=== PATIENT | female | born 2000 | race Caucasian/White ===

== ENCOUNTER 2025-02-04 08:31 | Outpatient (CLI) | payer BC, SELFPAY ==
--- NOTE | 2025-02-04 08:45 | CA_ITS ---
APPROVED REPORT EXAM: Comprehensive 2D, Doppler, and color-flow Echocardiogram Orthopaedic Doctor: Pau Neal CRT Ht: 5 ft 7 in Wt: 145lbs BSA: 1.76 BP: 97/58 mmHg Indications: balloon valvuloplasty @ 4 days old, BAV, AR, 2D Dimensions LA Volume 57.90 mL LA Volume Index 32.00 mL/m2 (M/F) 16-34 M-Mode Dimensions RVDd 2.04 cm (0.9-2.6) LA Diam 3.64 cm (1.9-4.0) LVDd 4.53 cm (3.5-5.7) LVDs 2.96 cm (3.5-5.7) IVSd 1.57 cm (0.6-1.1) PWd 0.82 cm (0.6-1.1) EF (Teich) 63.90% FS 34.70% EDV (Teich) 93.90 mL TAPSE 2.66 (<1.7) ESV (Teich) 33.90 mL LV Diastology E Decel Time 157 (160-240 msec) E/A Ratio 1.42 MED A' 7.20 cm/s LAT A' 3.90 cm/s Aortic Valve LI Index 1.36 cm2/m2 AoV Peak Jamey. 247.0 (50-130 cm/s) AI PHT 650.00 ms AO Peak GR. 24.30 mmHg AO Mean GR. 14.90 (<5 mmHg) AO VTI 60.3 (18-25 cm) LI (VTI) 2.47 (2.5-4.5 cm2) Mitral Valve MV E Max Jamey. 119.0 (40-130 cm/s) MV A Velocity 83.0 (40-130 cm/s) E/A Ratio 1.42 MV PHT 46.0 ms Pulmonary Valve PV Peak Velocity 143.0 (50-150 cm/s) Tricuspid Valve TR P. Velocity 281.00 cm/s RAP Estimate 10.00 mmHg RVSP 41.70 mmHg Left Ventricle The left ventricle is normal size. Left ventricular systolic function is normal. The left ventricular ejection fraction is within the normal range. There is normal left ventricular wall thickness. There is normal LV segmental wall motion. The left ventricular diastolic function is normal. LVEF is 55%. Right Ventricle The right ventricle is normal size. The right ventricular systolic function is normal. Atria The left atrium size is normal. The right atrium size is normal. There is no color Doppler evidence of interatrial shunt. Aortic Valve History of bicuspid aortic valve s/p balloon valvuloplasty during childhood. The aortic valve is mildly thickened. Mild aortic stenosis is present. LI by continuity equation is 2.0 cm2. Peak velocity 2.3 m/s. Mean AV gradient 14 mmHg. Max AV gradient is 24 mmHg. Moderate aortic regurgitation is present. Mitral Valve The mitral valve is normal in structure. No evidence of mitral valve stenosis. Trace mitral regurgitation is present. Tricuspid Valve The tricuspid valve leaflets are thin and pliable. Mild tricuspid regurgitation. RVSP is 30-35 mmHg. Pulmonic Valve The pulmonary valve is grossly normal in structure. Mild pulmonic valve regurgitation is present. Great Vessels The aortic root is normal in size. IVC is normal in size and collapses >50% with inspiration. Pericardium There is no pericardial effusion. Other Information Study Quality: Fair Conclusion Normal biventricular size and systolic function. History of bicuspid aortic valve s/p balloon valvuloplasty during childhood. Moderate AI. Mild (LI by continuity equation is 2.0 cm2. Peak velocity 2.3 m/s. Mean AV gradient 14 mmHg. Max AV gradient is 24 mmHg). Mild TR, mild ME. RVSP 30-35 mmHg. Electronically signed by : Connie Braun MD 02/08/2025 19:15:08
--- OUTSIDE RECORDS SUMMARY | 2025-02-04 08:50 | XMS_ITS | Encounter Summary ---
Author Organization [facility] Address [address] [place] [address] Care Team Providers Care Denitrator Name Role Phone Fide Cochran RN Unavailable Unavailable Nicholas Koroma MD Unavailable Peewee Freeman MD Unavailable [phone] Olivia Holloway STATISTICAL CLERK ADVERTISING Unavailable [phone] Constance Parks RN Unavailable Unavailable Mayra Patel Primary Care Provider [phone] Reason for Visit * Reason Comments Med Refill Encounter Details Date Type Department Care Team (Late st Contact Info) Description 01/16/2023 Refill [facility] [address] [facility] [place] [address] Nicholas Koroma MD [address] [place] [address] Social History Tobacco Use Types Packs/Day Years Used Date Smoking Tobacco: Former Cigarettes 0.5 0.7 0 09/25/2019 - 05/27/2020 Smokeless Tobacco: Former Comments:vaped Alcohol Use Standard Drinks/Week Comments Not Currently 0 (1 standard drink = 0.6 oz pure alcohol) currently / Not drinking PHQ-2 Answer Date Recorded Patient Health Questionnaire-2 Score 0 12/06/2022 PHQ-2A Answer Date Recorded Patient Health Questionnaire-2 Score 0 12/06/2022 Education Answer Date Recorded What is the highest level of school you have completed or the highest degree you have received? 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 LVM documented in this encounter Plan of Treatment Not on file documented as of this encounter Visit Diagnoses Not on filedocumented in this encounter Additional Health Concerns Assessment Noted Time A fall risk assessment has been complete d for the patient 01/09/2023 1:58 PM EDT A Body Mass Index follow-up plan has been documented for the patient 10/25/2022 1:13 PM EDT documented as of this encounter Care Teams Denitrator Relationship Specialty Start Date End Date Mayra Patel PA [facility] PCP - General 12/06/22 Fide Cochran RN [facility] Registered Nurse 10/25/22 Nicholas Koroma MD [address] [place] [address] Consulting Physician Pediatric Cardiology 10/25/22 Peewee Freeman MD [address] [place] [address] Consulting Physician Cardiology 10/25/22 Olivia Holloway APRN [address] [place] [address] Nurse Practitioner Internal Medicine 10/25/22 Constance Parks RN [facility] Registered Nurse Cardiology 10/25/22 documented as of this encounter
--- OUTSIDE RECORDS SUMMARY | 2025-02-04 08:50 | XMS_ITS | Encounter Summary ---
Author Organization [facility] Address [address] [place] [address] Care Team Providers Care Full Stack Python Developer Name Role Phone Mayra Patel PA-C Primary Care Provider [phone] Encounter Details Date Type Department Care Team (Latest Contact Info) Description 12/09/2024 Travel Social History Tobacco Use Types Packs/Day Years Used Date Smoking Tobacco: Never Smokeless Tobacco: Never Alcohol Use Standard Drinks/Week Comments Not Currently 0 (1 standard drink = 0.6 oz pur e alcohol) OCC, 1 DRINK WEEKLY PHQ-2 Answer Date Recorded Patient Health Questionnaire-9 Score 5 12/09/2024 Comments No Sex and Gender Information Value Date Recorded Sex Assigned at Not on file Legal Sex Female 11:35 AM EDT Gender Identity Not on file Sexual Orientation Not on file documented as of this encounter Functional Status documented as of this encounter Plan of Treatment Not on file documented as of this encounter Visit Diagnoses Not on filedocumented in this encounter Additional Health Concerns Assessment Noted Time PHQ-2 Depression Total Score: 3 02/03/20 24 1:45 PM EDT documented as of this encounter Care Teams Full Stack Python Developer Relationship Specialty Start Date End Date Mayra Patel PA-C [address] [facility] [address] [place] [address] PCP - General Family Medicine 10/20/21 documented as of this encounter
--- OUTSIDE RECORDS SUMMARY | 2025-02-04 08:50 | XMS_ITS | Clinical Summary ---
Author Organization [facility] Address [address] [place] [address] Care Team Providers Care Assembly Line Worker Name Role Phone Fide Cochran RN Unavailable Unavailable Nicholas Koroma MD Unavailable Peewee Freeman MD Unavailable [phone] Olivia Holloway PAINTINGS CONSERVATOR Unavailable [phone] Constance Parks RN Unavailable Unavailable Mayra Patel Primary Care Provider [phone] Allergies No known active allergies Medications sertraline (Zoloft) 50 MG tablet Take 1 tablet (50 mg) by mouth 1 (one) time each day. Active Active Problems Problem Noted Date Diagnosed Date Aortic stenosis due to bicuspid aortic valve 01/2023 Aortic regurgitation due to bicuspid aortic valv e 02/02/2023 Encounter for planned induction of labor 023 Bicuspid aortic valve 12/06/2022 Fatigue 12/06/2022 Shortness of breath 12/06/2022 Edema 12/06/2022 Nonrheumatic aortic valve stenosis 10/25/2022 Congenital heart disease in 10/25/2022 Subaortic stenosis 10/25/2022 Moderate aortic regurgitation 10/25/2022 Social History Tobacco Use Types Packs/Day Years Used Date Smoking Tobacco: Former Cigarettes 0.5 0.7 0 09/25/2019 - 05/27/2020 Smokeless Tobacco: Former Tobacco Cessation:Counseling Given: Not Answered Comments:vaped Alcohol Use Standard Drinks/Week Comments Not Currently 0 (1 standard drink = 0.6 oz pure alcohol) currently / Not drinking PHQ-2 Answer Date Recorded Patient Health Questionnaire-2 Score 0 12/06/2022 [place] Depression Scale Answer Date Recorded [place] Depression Scale Total 3 01/24/2023 The thought of harming myself has occurred to me . 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 Not on file Not on file Not on file Last Filed Vital Signs Vital Sign Reading Time Taken Comments Blood Pressure 113/72 01/31/2023 1:25 PM EDT Pulse 66 01/31/2023 1:25 PM EDT Temperature 36.4 C (97.5 F) 01/24/2023 9:00 AM EDT Respiratory Rate 16 01/24/2023 9:00 AM EDT Oxygen Saturation 99% 01/31/2023 1:25 PM EDT Inhaled Oxygen Concentration - - Weight 72.1 kg (159 lb) 03/20/2023 4:38 PM EDT Height 170.2 cm (5' 7 ) 03/20/2023 4:38 PM EDT Body Mass Index 24.9 03/20/2023 4:38 PM EDT Plan of Treatment Health Maintenance Due Date Last Done Comments Dental Oral Exam 2000 Dental Prophylaxis 2000 Dental X-Ray: Bitewings 2000 Dental X-Ray: Full Mouth 2000 [facility]-HIV Screening 2000 [facility]-/Child/Adol SDOH Screenings 2000 [facility]- SDOH Screenings 2018 [facility]-Adult SDOH Screenings 2018 [facility]-DTaP,Tdap,and Td Vaccines (7 - Td or Tdap) 09/23/2021 09/24/2011, 12/18/2004, 06/25/2002, Additional history exists [facility]-Pap Smear 2021 [facility]-Depression Screening 01/25/2024 01/24/2023, 11/24 [id number] Vaccine ( season) 2025 [facility]-Influenza Vaccine (#1) 01/25/202507/25, 07/03/2016, 03/31/2012 [facility]-Zoster Vaccines (1 of 2) 2050 09/24/2011, 12/22/2001 [facility]-Hepatitis B Vaccines Completed 002, 02/13/2001, 2000 [facility]-HIB Vaccines Completed 06/25/2002, , 04/14/2001, Additional history exists [facility]-IPV Vaccines Completed 12/18/2004, , 04/14/2001, Additional history exists [facility]-Varicella Vaccines Completed 09/24/2011, 2001 HPV Vaccines Completed 03/31/2012, 06/2011, 09/24/2011 [facility]-Hepatitis A Vaccines Completed 03/31/2012, 08/27 [facility]-Hepatitis C Screening Completed 06/05/2022 [facility]-Pneumococcal Vaccine: Pediatrics (0 to 5 Years) and At-Risk Patients (6 to 49 Years) Aged Out No longer eligible based on patient's age to complete this topic [facility]-Rotavirus Vaccines Aged Out No lo nger eligible based on patient's age to complete this topic Insurance [facility] Member Subscriber Plan / Payer (Ef fective 2020-Present) Name:CHALO SEARS Relation to Subscriber:Child Name:RENUISRAEL Date of :1967 Address: [address] [place] [address] Payer ID:[id number] (NAIC) Type:Not on file Address: [facility] [address] [phone] Advance Directives * Full Code (Latest Code Status on File) Date Activated Date Inactivated Comments 01/04/2023 9:11 AM 01/07/2023 4:52 PM Question Answer Comments Patient has decision-making capacity? Yes Care Teams Assembly Line Worker Relationship Specialty Start Date End Date Mayra Patel PA [facility] PCP - General 12/06/22 Fide Cochran, RN [facility] Registered Nurse 10/25/22 Nicholas Koroma MD [address] [place] [address] Consulting Physician Pediatric Cardiology 10/25/22 Peewee Freeman MD [address] [place] [address] Consulting Physician Cardiology 10/25/22 Olivia Holloway APRN [address] [place] [address] Nurse Practitioner Internal Medicine 10/25/22 Constance Parks, RN [facility] Registered Nurse Cardiology 10/25/22
--- OUTSIDE RECORDS SUMMARY | 2025-02-04 08:50 | XMS_ITS | Patient Health Record ---
Author Organization [facility] Address [address] [facility] [facility] [facility] [place] [address] Care Team Providers Care Service Correspondent Name Role Phone Gisella Vega Unavailable [phone] GonsalesAmbar Unavailable [phone] Reason For Referral No Information Medications Medication SIG (Take, Route, Frequency, Duration) Notes Start Date End Date Status Escitalopram Oxalate 10 MG Tablet 1 tablet Orally Once a day Active Josefina 0.35 MG Tablet 1 tablet Orally On ce a day; Duration: 90 days 02/20/2023 Active Social History Tobacco Use: Social History Observation Description Date Details (start date - stop date) Current Smoker NA - NA Sex Assigned At : Social History Observation Description Sex Assigned At Female Social History Drugs/Alcohol: Social Info Question Answer Notes Drugs Have you used drugs other than those for medical reasons in the past 12 months? Yes Marijuana? Yes Steroid Use Have you used anabolic (body building) st eroids? No Alcohol Screen Did you have a drink containing alcohol in the past year? Yes Points 0 Interpretation Negative Tobacco Use: Social Info Question Answer Notes Tobacco Use/Smoking Are you a current smoker Problems Problem Type SNOMED Code ICD Code Onset Dates Problem Status W/U Status Risk Notes Problem Surveillance of oral contraception done (18963149941381 8) Encounter for surveillance of contraceptive pills (Z30.41) Active confirmed Problem Primigravida (714410365) Encounter for supervision of normal first in first trimester (Z34.01) Active confirmed Problem Aortic valve disorder (9716719) Aortic stenosis (I35.0) Active confirmed Problem Anemia of (disorder) (34195061) Anemia during (O99.019) Active confirmed Problem Gestation period, 16 weeks (47122917) 16 weeks gestation of (Z3A.16) Active confirmed Problem Gestation period, 8 weeks (31350823) 8 weeks gestation of (Z3A.08) Active confirmed Problem Gestation period, 20 weeks (51097011) 20 weeks gestation of (Z3A.20) Active confirmed Problem First trimester (51815750) Encounter for supervision of other normal , first trimester (Z34.81) Active confirmed Problem Second trimester (86933926) Encounter for supervision of other normal in second trimester (Z34.82) Active confirmed Problem Atresia and stenosis of aorta (494360318) Aortic stenosis (Q25.3) Active confirmed Problem Surveillance of contraception (856320044) Chooses not to have children (Z30.9) 021 Active confirmed Encounter for contraceptive management, unspecified Problem Counseling (443696125) ACP (advance care planning) (Z71.89) 017 Active confirmed Contraception counseling Problem Adult health examination (870730723) Adult general medical exam (Z00.00) 021 Active confirmed Encounter for general adult medical examination without abnormal findings Vital Signs Blood pressure diastolic 60 mm Hg 04/27/2024 Height 67 in 04/27/2024 Blood pressure systolic 104 mm Hg 04/27/2024 Weight 147.2 lbs 04/27/2024 BMI 23.05 kg/m2 04/27/2024 Encounters Encounter Location Date Provider Diagnosis [facility] [address] [place] [address] 04/17/2024 Ambar Gonsales Encounter for routine follow-up Z39.2 [facility] [address] [place] [address] 05/18/2024 Ambar Gonsales Mandolin Repair Person exam without abnormal findings Z01.419 [facility] [address] [place] [address] 04/27/2024 Ambar Gonsales Mandolin Repair Person exam without abnormal findings Z01.419 Assessments Encounter Date Diagnosis (ICD Code) Assessment Notes Treatment Notes Treatment Clinical Notes Section Notes 04/27/2024 Mandolin Repair Person exam without abnormal findings (ICD-10 - Z01.419) - Discussed current pap smear recommendations. Advised she is due in 2025 - Encouraged annual exams with COMPENSATION ASSOCIATE and PCP - Encouraged SBEs - Discussed irregular bleeding is normal for 3-4 months after starting contraception. Advised follow up if it continues out of that window. Discussed with POP need to take at same time everyday and miss no pills because it can decrease effectiveness and cause irregular bleeding. - Follow up as needed 04/17/2024 Encounter for routine follow-up (ICD-10 - Z39.2) 05/18/2024 Mandolin Repair Person exam without abnormal findings (ICD-10 - Z01.419) Plan Of Treatment Next Appt Details Provider Name:Ambar Gonsales , 05/03/2025 11:15:00 AM, [address] [facility] [address], [place], [address], Insurance Providers Payer Name Payer Address Payer Phone Subscriber Number Group Number Insured Name Patient Relationship to Insured Coverage Start Date Coverage End Date Salvador MILLER [address] [place] [address] [id number] Chika Unger Self - patient is the insured 3 Medical (General) History Medical History History ICD Code Heart Murmur Surgical History Surgery Date(Month/Year) Aortic Stenosis (Balloon) Hospitalization History Reason Date(Month/Year) Aortic Stenosis (Balloon)
--- OUTSIDE RECORDS SUMMARY | 2025-02-04 08:50 | XMS_ITS | Clinical Summary ---
[facility] Address [address] [place] [address] Care Team Providers Care It Architecture Analyst Name Role Phone Mayra Patel PA-C Primary Care Provider [phone] Allergies No known active allergies Medications * This document contains information received from the source organization and may not represent a complete record from that organization. Incassia 0.35 MG tablet Take 1 tablet by mouth Daily. 28 tablet 05/21/2024 Active escitalopram (LEXAPRO) 20 MG tabletIndication s:Generalized anxiety disorder,Depress ion, unspecified depression type Take 1 tablet by mouth Daily. 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 Assessment & Plan (09/19/2022 2:47 PM EDT): Reviewed the increased risk of T21 based on Quad screen. Discussed the limitations of serum screening and reviewed follow up options of NIPS vs amniocentesis. Ultrasound today appears reassuring but discussed that some fetuses with Trisomy 21 can appear normal on ultrasound Patient is considering her options. She may request NIPS though your office when she sees you next week Teratogen exposure in current 07/04/19 23 07/04/2022 Aortic valve stenosis 07/04/2022 Assessment & Plan (11/21/2022 1:30 PM EDT): Patient returns today for follow-up for maternal aortic stenosis. Patient had a recent echocardiogram that demonstrated continued aortic stenosis. Peak gradient across the aortic valve was 59 mmHg with a mean of 28 mmHg. There was some aortic regurgitation. All in all this appears adequate for a reasonably safe delivery in this patient. We would recommend an anesthesia consultation prior to labor for this patient to allow anesthesia to be familiar with the patient and her echocardiogram results. Patients with mild aortic stenosis generally do well during labor. Anesthesia should be informed of the patient's condition so they can make plans for any anesthesia requirements. Epidurals are generally not contraindicated but should be initiated slowly so as not to drop filling pressure of the heart and fluid management is important to include sugars there is not fluid overload leading to pulmonary edema. Assessment & Plan (09/19/2022 2:45 PM EDT): Currently without symptoms of cardiac compromise echocardiogram normal Had echocardiogram and cardiology follow up 05/17. Echo at that time with normal EF though moderate aortic stenosis, mild aortic regurgitation Reviewed symptoms of SOA, CP, swelling Please see consult note from prior visit with MFM with peripartum management recommendations (note in [facility]) Recommend follow up echocardiogram at 28 - 32 weeks GA (patient will call to scheduled) Encounters * This document contains information received from the source organization and may not represent a complete record from that organization. Date Type Department Care Team Description 12/09/2024 Travel from Last 3 Months Immunizations Immunization Administration Dates Next Due DTaP, Unspecified 12/18/2004, 3,06/16/2001,04/14/20 01,02/13/2001 Flu Vaccine Quad PF >36MO 07/03/2016 FluMist 2-49yrs (Nasal) 03/31/2012 HPV Quadrivalent 03/31/2012 HPV, Unspecified 11/26/2011,09/24/2011 Hep A, 2 Dose 03/31/2012,09/24/2011 Hep B, Adolescent or Pediatric 06/16/2001,2000,2000 HiB 06/25/2002, 2,04/14/2001,02/14/20 01 IPV 12/18/2004, 2,04/14/2001,02/14/20 Influenza TIV (IM) 07/25/2017 MMR 12/18/2004,03/24/2002 Meningococcal Conjugate 07/25/2017,09/24/2011 PEDS-Pneumococcal Conjugate (PCV7) 03/24,06/16/2001,04/14/2001,02/14/20 Tdap 09/24/2011 Varicella 09/24/2011,12/22/2001 Family History Medical History Relation Name Comments Stroke Father Diabetes Maternal Grandmother ADD / ADHD Mother Mental illness Mother Relation Name Status Comments Father Maternal Grandmother Mother Social History Tobacco Use Types Packs/Day Years Used Date Smoking Tobacco: Never Smokeless Tobacco: Never Tobacco Cessation:Counseling Given: Not Answered Alcohol Use Standard Drinks/Week Comments Not Currently 0 (1 standard drink = 0.6 oz pur e alcohol) OCC, 1 DRINK WEEKLY PHQ-2 Answer Date Recorded Patient Health Questionnaire-9 Score 5 12/09/2024 Comments No Sex and Gender Information Value Date Recorded Sex Assigned at Not on file Legal Sex Female 11:35 AM EDT Gender Identity Not on file Sexual Orientation Not on file Last Filed Vital Signs Vital Sign Reading Time Taken Comments Blood Pressure 104/60 12/09/2024 8:37 AM EDT Pulse 65 12/09/2024 8:37 AM EDT Temperature 36.9 C (98.4 F) 12/02/2023 3:38 PM EDT Respiratory Rate 18 05/23/2023 4:11 PM EST Oxygen Saturation 99% 12/09/2024 8:37 AM EDT Inhaled Oxygen Concentration - - Weight 66.2 kg (146 lb) 12/09/2024 8:37 AM EDT Height 172.7 cm (5' 7.99 ) 12/09/2024 8:37 AM ED T Body Mass Index 22.2 12/09/2024 8:37 AM EDT Plan of Treatment Health Maintenance Due Date Last Done Comments Annual Gynecologic Pelvic and Breast Exam 2000 TDAP/TD VACCINES (2 - Td or Tdap) 09/23/2021 09/24/2011 PAP SMEAR 2021 ANNUAL PHYSICAL 02/01/2022 02/01/2021 CHLAMYDIA SCREENING 06/05/2023 06/05/2022 COVID-19 Vaccine ( season) 2025 INFLUENZA VACCINE 02/24/2025 07/25/2017, , 03/31/2012 Pneumococcal Vaccine 0-49 Aged Out 2001, 06/16/2001, 04/14/2001, Additional history exists No longer eligible based on patient's age to complete this topic HPV VACCINES Completed 03/31/2012, 06/2011, 09/24/2011 HEPATITIS C SCREENING Completed 06/05/2022 MENINGOCOCCAL B VACCINE Aged Out No l onger eligible based on patient's age to complete this topic Procedures Procedure Name Priority Date/Time Associated Diagnosis Comments CHLAMYDIA TRACHOMATIS, NEISSERIA GONORRHOEAE, TRICHOMONAS VAGINALIS, PCR Routine 06/05/2022 2:53 PM EST 8 weeks gestation of HEPATITIS C ANTIBODY Routine 06/05/2022 2:53 PM EST 8 weeks gestation of from Last 3 Months or Most Recently Relevant to Health Maintenance Results * Chlamydia trachomatis, Neisseria gonorrhoeae, Trichomonas vaginalis, PCR - Swab, Urine, Clean Catch(06/05/2022 2:53 PM EST) Chlamydia trachomatis, MARY Negative Negative 06/07/2022 3:35 AM EST [facility] Gonococcus by MARY Negative Negative 06/07/2022 3:35 AM EST [facility] Trichomonas vaginosis Negative Negative 06/07/2022 3:35 AM EST [facility] Swab Urine specimen obtained by clean catch procedure / Unknown Collection / Unknown 06/05/2022 2:53 PM EST 06/05/2022 2:56 PM EST Narrative [facility] - 06/07/2022 3:35 AM EST Performed at: [address] [id number] Background Check Coordinator: Laurie Harry MD, Phone: [phone] us Rebekah Velazquez MD MICROBIOLOGY - GENERAL ORDERA BLES Final Result [facility] [address] [place] [address], * Hepatitis C Antibody (06/05/2022 2:53 PM EST) Hepatitis C Ab Non-Reacti ve Non-Reacti ve 06/05/2022 9:23 PM EST [facility] Blood Venipuncture / Unknown 06/05/2022 2:53 PM EST 06/05/2022 2:56 PM EST Narrative [facility] - 06/05/2022 9:23 PM EST Results may be falsely decreased if patient taking Biotin. Rebekah Velazquez MD LAB BLOOD ORDERABLES Final Re sult [facility]
[address] [place] [address], from Last 3 Months or Most Recently Relevant to Health Maintenance Insurance [address] [id number] Care Teams It Architecture Analyst Relationship Specialty Start Date End Date Mayra Patel PA-C [id number] [facility] [address] [place] [address] PCP - General Family Medicine 10/20/21
== END 2025-02-04 23:59 | disposition home or self-care (01) ==
LOC: RT 08:32
PROVIDERS: PCP Physician Assistant Medical; Visit Provider Internal Medicine
DX: I08.8 Other rheumatic multiple valve diseases (principal); Z87.74 Personal history of (corrected) congenital malformations of heart and circulatory system
CPT/HCPCS: 93306